=== PATIENT | female | born 1960 | race Caucasian/White ===

== ENCOUNTER 2020-04-03 08:28 | Outpatient (REF) | payer BC, SELFPAY ==
--- NOTE | 2020-04-03 08:36 | MM_ITS ---
EXAMINATION: MM SCREENING DIGITAL BREAST TOMOSYNTHESIS, BILATERAL CLINICAL INFORMATION: Screening. Asymptomatic. The lifetime risk of breast cancer based on the Tyrer-Cuzick Model is 5.1%. COMPARISON: Mammography: January 23, 2019 and studies dating back to January 10, 2008 TECHNIQUE: Digital breast tomosynthesis is performed in both the craniocaudal and mediolateral oblique views along with computer-aided detection (CAD). Synthesized 2D images are generated from the tomosynthesis. FINDINGS: The breasts are heterogeneously dense, which may obscure small masses (ACR BI-RADS breast composition Category c). There is a stable parenchymal pattern within the left breast however there is a region of architectural distortion about the upper outer aspect of the right breast which may have some more soft tissue component on the mediolateral oblique projection for which spot compression view is. There is no history of previous right breast procedure. MM/MM tomosynthesis screening BI IMPRESSION: Questionable increase in parenchymal density in region of architectural distortion upper outer aspect of the right breast for further evaluation as described. ASSESSMENT: BI-RADS 0: Incomplete - Need Additional Imaging Evaluation RECOMMENDATION: 1. Additional views of the right 2. Targeted ultrasound if warranted after review of the additional views. 3. Radiology department staff will contact the patient for additional imaging. This patient's information was entered into a reminder system with a target due date for their next mammogram.
== END 2020-04-03 08:29 | disposition home or self-care (01) ==
LOC: HO.MAMMO 08:28
PROVIDERS: PCP Family Medicine; Visit Provider Student in an Organized Health Care Education/Training Program
DX: Z12.31 Encounter for screening mammogram for malignant neoplasm of breast (principal)
CPT/HCPCS: 77063; 77067

== ENCOUNTER 2020-04-06 14:33 | Outpatient (REF) | payer BC, SELFPAY ==
--- NOTE | 2020-04-06 14:39 | MM_ITS ---
EXAMINATION: MM DIAGNOSTIC DIGITAL BREAST TOMOSYNTHESIS, RIGHT BREAST TARGETED RIGHT BREAST ULTRASOUND CLINICAL INFORMATION: Region of architectural distortion upper outer aspect right breast. COMPARISON: Mammography: 04/03/2020 and studies dating back to 08/17/2005. TECHNIQUE: Digital breast tomosynthesis is performed. 2D images are generated from the tomosynthesis. The following views are obtained: Spot compression craniocaudal, spot compression mediolateral oblique, and 90 degree mediolateral views right breast. FINDINGS: The breasts are heterogeneously dense, which may obscure small masses (ACR BI-RADS breast composition Category c). Additional imaging again shows a questionable region of architectural distortion about the upper outer aspect of the right breast which had been worked up in 2007. There is a similar appearance but I would still recommend a 6-month follow-up right breast mammogram to ensure stability. Targeted right breast ultrasound was then performed. Scanning by the technologist and myself did not demonstrate any abnormal cystic or solid mass. No region of architectural distortion or abnormal distal sound shadowing was identified. Results are discussed with the patient at time of visit. MM/MM tomosynthesis added views R IMPRESSION: Probably benign region of architectural distortion upper outer aspect of the right breast as described. ASSESSMENT: BI-RADS 3: Probably Benign. RECOMMENDATION: Diagnostic mammography in 6 months. This patient's information was entered into a reminder system with a target due date for their next mammogram.
--- NOTE | 2020-04-06 14:41 | US_ITS ---
EXAMINATION: US DIAGNOSTIC ULTRASOUND BREAST, RIGHT CLINICAL INFORMATION: The upper outer quadrant architectural distortion. COMPARISON: Mammography of same day as well as studies dating back to November 17, 2006. TECHNIQUE: Ultrasound of the breast is performed with real-time gooden scale imaging and color Doppler. FINDINGS: Targeted right breast ultrasound was performed. Scanning by the technologist and myself did not demonstrate any abnormal cystic or solid mass. No region of architectural distortion or abnormal distal sound shadowing was identified. Results are discussed with the patient at time of visit. US/US breast RT limited IMPRESSION: Probably benign region of architectural distortion upper outer aspect of the right breast as described. ASSESSMENT: BI-RADS 3: Probably Benign. RECOMMENDATION: Diagnostic mammography in 6 months.
== END 2020-04-06 14:34 | disposition home or self-care (01) ==
LOC: HO.MAMMO 14:33
PROVIDERS: Visit Provider Family Medicine
DX: N64.89 Other specified disorders of breast (principal)
CPT/HCPCS: 76642; 77061; 77065

== ENCOUNTER 2020-06-10 14:52 | Outpatient (REF) | payer BC, SELFPAY ==
[2020-06-10 15:27] LABS: MANUAL DIFF FLAG NO
[2020-06-10 15:29] LABS: Glucose Urine UA NEG (NEG); Leukocyte Esterase Urine NEG (NEG); Nitrite Urine NEG (NEG); PH 6.5 (5.0-8.0); Specific Gravity - Urine 1.015 (1.005-1.025); Urine Blood NEG (NEG); Urine Ketones NEG (NEG); Urine Protein NEG (NEG-TRACE)
[2020-06-10 15:31] LABS: Basophils Percent Auto 0.6 % (0-2); Eosinophils Absolute Auto 0.1 X10*3/uL (0.0-0.4); Eosinophils Percent Auto 2.1 % (0-4); Hematocrit 44.4 % (37-47); Hemoglobin 14.9 g/dl (12.0-16.0); Imm Gran Abs Auto 0.02 X10*3/uL (0.00-0.03); Imm Gran Pct Auto 0.3 % (0.0-0.4); Lymphocytes Absolute Auto 2.1 X10*3/uL (1.2-4.9); Lymphocytes Percent Auto 30.1 % (20-40); Mean Corpuscular HGB Conc 33.6 g/dl (31.0-35.0); Mean Corpuscular Volume 92.3 fL (80-98); Mean Platelet Volume 10.6 fL (9.4-12.3); Monocytes Absolute Auto 0.7 X10*3/uL (0.1-1.2); Monocytes Percent Auto 10.3 % (2-11); Neutrophils Absolute Auto 3.9 X10*3/uL (2.0-8.3); Neutrophils Percent Auto 56.6 % (45-73); Platelet Count 243 X10*3/uL (160-400); Red Blood Count 4.81 X10*6/uL (4.20-5.50); Red Cell Distribution Width 12.5 % (11.0-16.0); White Blood Count 6.8 X10*3/uL (4.8-10.8)
[2020-06-10 15:32] LABS: Appearance Urine CLEAR; Color Urine YELLOW
== END 2020-06-10 14:53 | disposition home or self-care (01) ==
LOC: HO.LAB 14:52
PROVIDERS: PCP Family Medicine; Visit Provider Family Medicine
DX: R10.9 Unspecified abdominal pain (principal); R11.2 Nausea with vomiting, unspecified
CPT/HCPCS: 36415; 81003; 85025

== ENCOUNTER 2020-06-11 10:31 | Outpatient (REF) | payer BC, SELFPAY ==
--- NOTE | ~2020-06-11 | US_ITS ---
EXAMINATION:US pelvic and transvaginal CLINICAL INFORMATION: Reason for Exam PELVIC PAIN COMPARISON: No priors available. LMP: Postmenopausal FINDINGS: UTERUS: The uterus is anteverted. Size: 5.9 x 2.9 x 3.7 cm. Uterine mass: Intramural uterine mass in the posterior wall of the uterus measure 1.7 x 1.4 x 1.8 cm likely uterine fibroid. Cervix: Grossly unremarkable. Endometrium: No ultrasound evidence of endometrial lesion. endometrial thickness measures 0.35 cm ADNEXA: Ovaries were not visualized might have been obscured by bowel gas. FREE FLUID: Trace amount of free fluid. OTHER FINDINGS: None US/US pelvic and transvaginal IMPRESSION: 1. Intramural uterine mass 1.8 cm most likely uterine fibroid. 2. Ovaries were not visualized right have been atrophic and/or obscured by bowel gas.
--- NOTE | ~2020-06-11 | US_ITS ---
EXAMINATION: US RETROPERITONEAL LIMITED (RENAL ONLY) CLINICAL INFORMATION: Right lower quadrant pain. COMPARISON: None TECHNIQUE: Real-time imaging of the kidneys. FINDINGS: RIGHT KIDNEY: 9.8 x 4.6 x 5.56 cm (SAG x AP x TRV). The kidney is normal in size, contour, and echogenicity. Renal cortical thickness is normal. No renal calculi or focal parenchymal lesions. Mild fullness of the collecting system. LEFT KIDNEY: 10.7 x 4.6 x 4.4 cm (SAG x AP x TRV). The kidney is normal in size, contour, and echogenicity. Renal cortical thickness is normal. No focal parenchymal lesions or hydronephrosis. Mid pole 0.5 cm calculus. Midpole 0.3 cm calculus. Incidental note of a hyperechoic lesion in the right lobe of the liver measuring 3.8 cm. This could represent a hemangioma. US/US renal BI IMPRESSION: Mild fullness of the right collecting system, though no significant hydronephrosis. No right-sided renal calculi are seen. 2 nonobstructing left renal calculi are noted. Incidental note of a hyperechoic lesion in the right lobe of the liver. This may represent a hemangioma. If clinically indicated this could be further evaluated with nonemergent dynamic liver MRI..
== END 2020-06-11 10:32 | disposition home or self-care (01) ==
LOC: HO.HMGCX 10:31
PROVIDERS: PCP Family Medicine; Visit Provider Family Medicine
DX: R10.31 Right lower quadrant pain (principal); R10.9 Unspecified abdominal pain
CPT/HCPCS: 76775; 76830; 76856

== ENCOUNTER → 2020-07-20 07:53 | Outpatient (BNVA) | payer BC, SELFPAY | PROVIDERS: PCP Family Medicine; Visit Provider Advanced Practice Midwife ==

== ENCOUNTER 2020-10-06 12:57 | Outpatient (REF) | payer BC, SELFPAY ==
--- NOTE | ~2020-10-06 | MM_ITS ---
EXAMINATION: MM DIAGNOSTIC DIGITAL BREAST TOMOSYNTHESIS, RIGHT CLINICAL INFORMATION: Short interval six-month follow-up chronic findings right breast upper outer quadrant. The lifetime risk of breast cancer based on the Tyrer-Cuzick Model is 7%. COMPARISON: Mammography: 04/06/2020, 04/03/2020 and multiple prior studies dating back to 11/17/2006. TECHNIQUE: Digital breast tomosynthesis is performed in both the craniocaudal and mediolateral oblique views along with computer-aided detection (CAD). Synthesized 2D images are generated from the tomosynthesis. FINDINGS: There are scattered areas of fibroglandular density (ACR BI-RADS breast composition Category b). Right breast parenchymal pattern is similar to multiple prior studies. There is no developing density or interval mass or interval architectural changes in the upper outer quadrant. No abnormal calcifications. The axilla and skin contours are unremarkable. Results are provided to the patient at time of visit by the technologist. MM/MM tomosynthesis diagnostic RT IMPRESSION: No significant changes in right breast parenchymal pattern when compared with multiple prior exams. ASSESSMENT: BI-RADS 2: Benign RECOMMENDATION: Routine annual mammography screening. This patient's information was entered into a reminder system with a target due date for their next mammogram.
== END 2020-10-06 12:58 | disposition home or self-care (01) ==
LOC: HO.MAMMO 12:57
PROVIDERS: Visit Provider Family Medicine
DX: R92.2 Inconclusive mammogram (principal)
CPT/HCPCS: 77061; 77065

== ENCOUNTER 2021-04-09 07:57 | Outpatient (REF) | payer BC, SELFPAY ==
--- NOTE | ~2021-04-09 | MM_ITS ---
EXAMINATION: MM SCREENING DIGITAL BREAST TOMOSYNTHESIS, BILATERAL CLINICAL INFORMATION: Screening. Asymptomatic. The lifetime risk of breast cancer based on the Tyrer-Cuzick Model is 6%. COMPARISON: Mammography: 10/06/2020, 04/06/2020, 04/03/2020, 01/23/2019, 01/16/2018, 09/29/2016, 09/10/2015 TECHNIQUE: Digital breast tomosynthesis is performed in both the craniocaudal and mediolateral oblique views along with computer-aided detection (CAD). Synthesized 2D images are generated from the tomosynthesis. FINDINGS: There are scattered areas of fibroglandular density (ACR BI-RADS breast composition Category b). Parenchymal pattern is similar to prior studies. There is no developing density or interval architectural abnormality. A few fine calcifications anterior outer right breast are stable. There are no interval suspicious calcifications. The axilla and skin contours are unremarkable. There are no significant changes from prior studies. MM/MM tomosynthesis screening BI IMPRESSION: No mammographic evidence of malignancy. ASSESSMENT: BI-RADS 2: Benign RECOMMENDATION: Routine annual mammography screening. This patient's information was entered into a reminder system with a target due date for their next mammogram.
== END 2021-04-09 07:58 | disposition home or self-care (01) ==
LOC: HO.MAMMO 07:57
PROVIDERS: Visit Provider Family Medicine
DX: Z12.31 Encounter for screening mammogram for malignant neoplasm of breast (principal)
CPT/HCPCS: 77063; 77067

== ENCOUNTER → 2021-07-22 08:00 | Outpatient (BNVA) | payer BC, SELFPAY | PROVIDERS: PCP Family Medicine; Visit Provider Advanced Practice Midwife | DX: Z01.419 Encounter for gynecological examination (general) (routine) without abnormal findings (principal) ==

== ENCOUNTER 2022-04-15 07:46 | Outpatient (REF) | payer BC, SELFPAY ==
--- NOTE | ~2022-04-15 | MM_ITS ---
EXAMINATION: MM SCREENING DIGITAL BREAST TOMOSYNTHESIS, BILATERAL CLINICAL INFORMATION: Screening. Asymptomatic. The lifetime risk of breast cancer based on the Tyrer-Cuzick Model is 7%. COMPARISON: Mammography: 04/09/2021, 10/06/2020, 04/06/2020, 04/03/2020, 01/23/2019 TECHNIQUE: Digital breast tomosynthesis is performed in both the craniocaudal and mediolateral oblique views along with computer-aided detection (CAD). Synthesized 2D images are generated from the tomosynthesis. FINDINGS: There are scattered areas of fibroglandular density (ACR BI-RADS breast composition Category b). There are no significant masses, abnormal calcifications, or other abnormalities. Parenchymal pattern is similar to prior exams and there is no developing density or architectural abnormality. The axilla are unremarkable. Skin contours are smooth. MM/MM tomosynthesis screening BI IMPRESSION: No mammographic evidence of malignancy. ASSESSMENT: BI-RADS 1: Negative RECOMMENDATION: Routine annual mammography screening. This patient's information was entered into a reminder system with a target due date for their next mammogram.
== END 2022-04-15 07:47 | disposition home or self-care (01) ==
LOC: HO.MAMMO 07:46
PROVIDERS: PCP Family Medicine; Visit Provider Family Medicine
DX: Z12.31 Encounter for screening mammogram for malignant neoplasm of breast (principal)
CPT/HCPCS: 77063; 77067

== ENCOUNTER 2022-05-10 08:00 | Outpatient (REF) | payer BC, SELFPAY ==
[2022-05-10 09:08] LABS: Alanine Aminotransferase 15 U/L (0-31); Albumin Level 4.2 g/dL (3.5-5.0); Alkaline Phosphatase 79 U/L (39-117); Anion Gap 15 (12-20); Aspartate Amino Transferase 20 U/L (5-31); Blood Urea Nitrogen 21 mg/dL (9-16); Calcium 9.2 mg/dL (8.4-10.2); Carbon Dioxide 24 mmol/L (22-29); Chloride 104 mmol/L (96-108); Estimated Glomerular Filt Rate > 60; Glucose Random 103 mg/dL (60-115); Potassium 4.2 mmol/L (3.3-5.1); Sodium 139 mmol/L (135-145)
== END 2022-05-10 08:01 | disposition home or self-care (01) ==
LOC: HO.LAB 08:00
PROVIDERS: PCP Family Medicine; Visit Provider Family Medicine
DX: R00.2 Palpitations (principal); R53.83 Other fatigue
CPT/HCPCS: 36415; 80053

== ENCOUNTER → 2022-07-27 07:59 | Outpatient (BNVA) | payer BC, SELFPAY | PROVIDERS: PCP Family Medicine; Visit Provider Advanced Practice Midwife ==

== ENCOUNTER 2023-04-26 07:43 | Outpatient (REF) | payer BC, SELFPAY ==
--- NOTE | ~2023-04-26 | MM_ITS ---
EXAMINATION: MM SCREENING DIGITAL BREAST TOMOSYNTHESIS, BILATERAL CLINICAL INFORMATION: Screening. Asymptomatic. COMPARISON: Mammography: This study is compared with prior exams dating back to 2018. TECHNIQUE: Digital breast tomosynthesis is performed in both the craniocaudal and mediolateral oblique views along with computer-aided detection (CAD). Synthesized 2D images are generated from the tomosynthesis. FINDINGS: There are scattered areas of fibroglandular density (ACR BI-RADS breast composition Category b). There is a large area of focal asymmetry in the upper outer quadrant of the right breast. This is been previously evaluated and followed with mammography. On the current study, the area of focal asymmetry appears larger and more distinct. Additional mammographic and targeted sonographic evaluation of this finding is advised. Rolled cc views of the right breast included in the diagnostic workup. There is a coarse, benign calcification in the medial aspect of the right breast. In the left breast, there are no significant masses, abnormal calcifications, or other abnormalities. MM/MM tomosynthesis screening BI IMPRESSION: Focal asymmetry of the right breast warrants additional mammographic and targeted sonographic imaging. No mammographic signs of malignancy left breast. ASSESSMENT: BI-RADS BI-RADS 0 - Incomplete: Needs additional Imaging. RECOMMENDATION: 1. Additional views of the right breast. 2. Targeted ultrasound if warranted after review of the additional views. 3. Radiology department staff will contact the patient for additional imaging. Additional Imaging required This examination should not preclude the clinical evaluation of a suspicious palpable abnormality. This patient's information was entered into a reminder system with a target due date for their next mammogram.
== END 2023-04-26 07:44 | disposition home or self-care (01) ==
LOC: HO.MAMMO 07:43
PROVIDERS: PCP Family Medicine; Visit Provider Family Medicine
DX: Z12.31 Encounter for screening mammogram for malignant neoplasm of breast (principal)
CPT/HCPCS: 77063; 77067

== ENCOUNTER → 2023-04-26 08:00 | Outpatient (BNV) | payer BC, SELFPAY | PROVIDERS: PCP Family Medicine; Visit Provider Radiology Diagnostic Radiology | DX: Z12.31 Encounter for screening mammogram for malignant neoplasm of breast (principal) | CPT/HCPCS: 77063; 77067 ==

== ENCOUNTER 2023-05-22 08:50 | Outpatient (REF) | payer BC, SELFPAY ==
--- NOTE | ~2023-05-22 | US_ITS ---
EXAMINATION: MM DIAGNOSTIC DIGITAL BREAST TOMOSYNTHESIS, RIGHT US BREAST LIMITED, RIGHT MAMMOGRAPHY: CLINICAL INFORMATION: Callback for focal asymmetry upper outer quadrant right breast. COMPARISON: Mammography: 04/26/2023, 04/09/2021, 10/06/2020, 04/06/2020, 04/03/2020, 01/23/2019 TECHNIQUE: Digital right breast tomosynthesis is performed including full-field right mediolateral view was obtained, as well as spot compression 3-D right MLO and right CC views along with computer-aided detection (CAD). Synthesized 2D images are generated from the tomosynthesis FINDINGS: There are scattered areas of fibroglandular density (ACR BI-RADS breast composition Category b). On the diagnostic spot compression views, and full-field right ML view, the focal asymmetry appears to largely dissipate without persistent mass or suspicious feature. This most likely represents a prominent island of normal breast parenchyma. No suspicious calcifications are evident. No skin thickening or axillary abnormalities. ULTRASOUND: CLINICAL INFORMATION: Evaluate focal asymmetry upper outer quadrant right breast. COMPARISON: 04/06/2020. Same indication. TECHNIQUE: Targeted sonographic evaluation was performed using a high frequency linear transducer. The right upper quadrant was targeted for evaluation. Selected archived documentation. FINDINGS: RIGHT BREAST: There is a mixture of fatty and fibroglandular tissue. No suspicious mass is seen. There is no pathologic acoustic shadowing. There is no cystic abnormality. There is no ultrasound correlate to the mammographic focal asymmetry. US/US breast RT limited mamm only IMPRESSION: There are no findings suspicious for malignancy within the right breast. Focal asymmetry upper outer quadrant right breast does not appear to persist on diagnostic views, and has no ultrasound correlate. This has been investigated previously and represents an island of mildly prominent normal breast parenchyma. Recommend the patient return to routine annual screening mammography in one year. OVERALL ASSESSMENT: Mammography: BI-RADS 1 - Negative Ultrasound: BI-RADS 1 - Negative RECOMMENDATION: 1 year F/U Results were provided to the patient at time of visit by the technologist. This patient's information was entered into a reminder system with a target due date for their next mammogram.
== END 2023-05-22 08:51 | disposition home or self-care (01) ==
LOC: HO.MAMMO 08:50
PROVIDERS: PCP Family Medicine; Visit Provider Family Medicine
DX: N64.89 Other specified disorders of breast (principal)
CPT/HCPCS: 76642; 77061; 77065

== ENCOUNTER → 2023-05-22 09:00 | Outpatient (BNV) | payer BC, SELFPAY | PROVIDERS: PCP Family Medicine; Visit Provider Radiology Diagnostic Radiology | DX: R92.8 Other abnormal and inconclusive findings on diagnostic imaging of breast (principal) | CPT/HCPCS: 76642; 77061; 77065 ==

== ENCOUNTER 2023-12-19 07:42 | Outpatient (AMB) | payer BC, SELFPAY ==
--- NOTE | 2023-12-19 07:44 | A.OFFVIS_ITS ---
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 She is doing well with no concerns. Attempting to eat a healthy diet with calcium and vitamin D and stays active with exercise. Currently sexually active. Denies any vaginal dryness or irritation. Last pap smear; 2018. Last mammogram; 2023. Colonoscopy is UTD. Denies any family history of breast, ovarian or colon cancer. 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 Sexually active: Yes Sexual orientation: Straight/Heterosexual Gender identity: Female Female Reproductive History Menstrual Menopause type: natural Total pregnancies: 1 Full term: 1 Number of Living Children: 1 Date of Mammogram: 04/26/23 Review of Systems Const All systems reviewed & are unremarkable except as noted in HPI and below Reports as per HPI Eyes Reports no additional complaints ENT Reports no additional complaints Card Reports no additional complaints Resp Reports no additional complaints GI Reports as per HPI and Reports no additional complaints Reports as per HPI Musc Reports no additional complaints Skin/Breast Reports as per HPI Neuro Reports no additional complaints Psych Reports no additional complaints Endo Reports no additional complaints Abraham/Lymph Reports no additional complaints Aller/Immun Reports no additional complaints Physical Exam Vital Signs: Last Vital Signs BP 126/72 12/19/23 07:46 BMI result Body Mass Index 28.5 Const General: cooperative, healthy appearing, no acute distress, well developed and alert Orientation/consciousness: patient oriented x3 HEENT Head: Yes normal to inspection Eyes General: appearance normal, both eyes and all related structures Neck Neck: Yes normal visual inspection Thyroid: Thyroid normal Chest Chest palpation & inspection: normal inspection of the chest and other (no puckering, dimpling, peau de orange, retraction, discharge, masses) Breast/axilla inspection: normal inspection of the breasts Breast/axilla palpation: normal palpation of the breasts Resp Effort & Inspection: normal respiratory effort GI Inspection: Yes normal to inspection Palpation (GI): Soft to palpation Rectal Exam - Female: deferred General: Yes bladder normal to palpation External Female Exam: normal external appearance and normal appearance of the urethra Speculum Exam - Vagina: normal appearance of the vagina, normal palpation, normal vaginal discharge and vagina atrophic Speculum Exam - Cervix: normal appearance of the cervix, normal palpation and Other cervical findings present (Stenotic os) Bimanual exam- vagina & uterus: normal bimanual exam, normal palpation, uterine size normal, bladder normal to palpation, normal palpation and non-tender Bimanual Exam- Adnexa, other: no masses Skin General skin exam: no rashes or lesions noted Rashes: no rashes Neuro General: patient oriented x3 Cognition (Neuro): normal cognition Extrem General: Yes normal to inspection Psych Attitude: cooperative Thought process: Normal thought process present Assessment & Plan Assessment & Plan (1) Encounter for annual routine gynecological examination: Code(s): Z01.419 - Encounter for gynecological examination (general) (routine) without abnormal findings Category: Medical Plan Discussed: Current recommendations for pap smears per ASCCP guidelines. Breast awareness, periodic self breast exams and yearly mammogram. Maintain a healthy lifestyle, well balanced diet including Calcium 1,200 mg and Vitamin D 600 IU daily, and routine exercise. Contact the office with any postmenopausal bleeding. Patient verbalizes understanding and agrees to the plan of care. She was given opportunity to ask questions and all questions were answered to the best of my ability. RTO in 1 year for annual ob gyn physician assistant exam. This note is constructed using voice recognition software. While every effort has been made to ensure accuracy, boating safety officer errors may have been included. Orders: Orders PAP + HPV E6/E7 rfx 18/45 Today Z01.419 - Encounter for gynecological examination (general) (routine) without abnormal findings Coding Level of Care Code Est Pt Prev Care 40-64y(21162) Diagnoses Encounter for annual routine gynecological examination Z01.419
[2023-12-19 07:46] VITALS: BP 126/72; BMI 28.5
== END 2023-12-19 08:19 | disposition home or self-care (01) ==
LOC: HO.HWS 07:42
PROVIDERS: PCP Family Medicine; Visit Provider Advanced Practice Midwife
DX: Z01.419 Encounter for gynecological examination (general) (routine) without abnormal findings (principal)
CPT/HCPCS: 99396

== ENCOUNTER 2023-12-19 07:42 | Outpatient (REF) | payer BC, SELFPAY ==
[2023-12-21 15:03] LABS: HPV mRNA E6/E7 Not Detected (Not Detected)
== END 2023-12-19 07:43 | disposition home or self-care (01) ==
LOC: HO.LNP 07:42
PROVIDERS: PCP Family Medicine; Visit Provider Advanced Practice Midwife
DX: Z01.419 Encounter for gynecological examination (general) (routine) without abnormal findings (principal)
CPT/HCPCS: 87624; 88175

== ENCOUNTER 2024-05-01 07:54 | Outpatient (REF) | payer BC, SELFPAY | END 2024-05-01 07:55 | disposition home or self-care (01) | LOC: HO.MAMMO 07:54 | PROVIDERS: PCP Family Medicine; Visit Provider Family Medicine | DX: Z12.31 Encounter for screening mammogram for malignant neoplasm of breast (principal) | CPT/HCPCS: 77063; 77067 ==

== ENCOUNTER → 2024-05-01 08:00 | Outpatient (BNV) | payer BC, SELFPAY | PROVIDERS: PCP Family Medicine; Visit Provider Internal Medicine | DX: Z12.31 Encounter for screening mammogram for malignant neoplasm of breast (principal) | CPT/HCPCS: 77063; 77067 ==

== ENCOUNTER 2024-11-13 07:53 | Outpatient (AMB) | payer BC, SELFPAY ==
--- NOTE | 2024-11-13 07:55 | A.OFFPC_ITS ---
Vital Signs 11/13/24 08:09 Height 5 ft 2 in Weight 156 lb BMI 28.5 BP 148/62 H Blood Pressure Location Rt brachial Position Sitting Respiration 17 Pulse 79 Pulse Source Pulse Oximeter Temp 98 F Pulse Oximetry (%) 96 Oxygen Delivery Method Room Air Intake Visit Reasons: 6 MO F/UP - LACKEY PT - see comments Child Custody Evaluator Required: No Accompanied by: Spouse Allergies clarithromycin (Biaxin) Allergy (Unknown, Verified 11/13/24 07:55) anxious Tobacco use date assessed: 11/13/24 Fall risk assessment: No Falls in past year Last assessed Fall Risk: 11/13/24 Dental Screening Did you have a dental visit in the last 12 months?: Yes HPI HPI Comments History of Present Illness Details The patient is a 64-year-old female presenting with hypertension and anxiety. She reports a history of high blood pressure readings, particularly in clinical settings, which she attributes to white coat hypertension. 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 The patient reports that she is currently on metoprolol, which was initially prescribed not solely for hypertension but also to manage symptoms related to tachycardia and anxiety. She describes herself as high-strung, reflective of her anxious personality, which she believes contributes to elevated heart rates and fluttery sensations. The patient has been resistant to medication use due to personal preference, taking several years before agreeing to start metoprolol. She also mentions historical smoking cessation 42 years ago and no use of alcohol or recreational drugs. Regular monitoring of blood pressure at home has not been done, as she monitors it while at work. 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 - Engages actively, often on her feet wi thout sitting - Does not consume alcohol or engage in recreational drug use - Smoker in the past but quit 42 years a go - Expresses anxiety about global and fam ilial concerns, prefers non-medication management [facility] Medical History (Updated 11/13/24 @ 08:41 by Arpit Johnson MD) Healthcare maintenance Anxiety Hypertension Family History (Updated 12/19/23 @ 07:48 by Candy Steel CMA) Father Diabetes Cardiomegaly Hypertension Mother Uterus cancer Social History (Updated 12/19/23 @ 07:49 by Candy Steel CMA) Household Members: Spouse Housing: House Alcohol intake: never Patient Tobacco Use Status: Former Tobacco user e-Cigarette/Vaping Use: Never Used service: No Current occupational status: employed Current occupation: retirement Sexual orientation: Straight/Heterosexual Gender identity: Female Questionnaire PHQ-9 Over the last 2 weeks, how often have you been bothered by any of the following problems? 1. Little interest or pleasure in doing things: not at all 2. Feeling down, depressed, or hopeless: not at all 3. Trouble falling or staying asleep, or sleeping too much: not at all 4. Feeling tired or having little energy: not at all 5. Poor appetite or overeating: not at all 6. Feeling bad about yourself - or that you are a failure or have let yourself or your family down: not at all 7. Trouble concentrating on things, such as reading the newspaper or watching television: not at all 8. Moving or speaking so slowly that other people could have noticed. Or the opposite - being so fidgety or restless that you have been moving around a lot more than usual: not at all 9. Thoughts that you would be better off or of hurting yourself in some way: not at all Total score: 0 Depression Screening Interpretation: Negative Depression Screening Done: Yes 72325 - PHQ-9 Billing: Yes Source: Developed by Drs. Govind Mcgraw, Gertrude Mccann, Dany Blackwood and colleagues, with an educational ananth from [employer]. Thrive Questionnaire Date Thrive assessed: 11/13/24 I am a: Patient What is your living situation today?: I have a steady place to live Within the past 12 months, did the food you bought not last and you didn't have the money to get more?: Never true Within the past 12 months, did you worry whether your food would run out before you got money to buy more?: Never true Do you have trouble paying for medicines?: No Do you have trouble getting transportation to medical appointments?: No Do you have trouble paying your heating and electricity bill?: No Do you have trouble taking care of your child, family member or friend?: No Do you have trouble with day-to-day activities such as bathing, preparing meals, shopping, managing finances, etc.?: No Are you currently unemployed and looking for a job?: No Are you interested in more education?: No THRIVE Score: 0 AUDIT C Alcohol Use Questionnaire (AUDIT-C) 1. How often do you have a drink containing alcohol?: Never 3. How often do you have six or more drinks on one occasion?: Never Total Score: 0 Score Reviewed/Action Taken: Yes ROB-7 AMB Questionnaire ROB-7 Date ROB - 7 assessed: 11/13/24 Feeling nervous, anxious, or on edge: 1 = Several days Not being able to stop or control worryin = Several days Worrying too much about different things: 0 = Not at all Trouble relaxin = Not at all Being so restless that it is hard to sit still: 0 = Not at all Becoming easily annoyed or irritable: 0 = Not at all Feeling afraid as if something awful might happen: 0 = Not at all Total ROB-7 score (0-4 normal; 5-9 mild; 10-14 moderate; 15-21 severe): 2 Source: Developed by Drs. Govind Mcgraw, Gertrude Mccann, Dany Blackwood and colleagues, with an educational ananth from [employer]. ROB-7 Assessment Billing ROB-7 Assessment Tool: ROB-7 Assessment 87956 Review of Systems Const Details: - Cardiovascular: Reports tachycardia and fluttering sensations; denies chest pain - Neurological: Denies headaches or changes in vision - Genitourinary: Denies urinary or bowel issues - Musculoskeletal: Denies joint pain; acknowledges use of compression stockings for leg symptoms - Psychological: Reports anxiety related to caretaking and personal concerns All systems reviewed & are unremarkable except as noted in HPI and below Physical exam (Primary Care) Vital Signs: Last Vital Signs Temp 98 F 11/13/24 08:09 Pulse 79 11/13/24 08:09 Resp 17 11/13/24 08:09 BP 148/62 H 11/13/24 08:09 Pulse Ox 96 11/13/24 08:09 Oxygen Delivery Method Room Air 11/13/24 08:09 BMI result Body Mass Index 28.5 Tobacco/Smoking Status: Tobacco use Status Tobacco use date assessed 11/13/24 11/13/24 07:56 Patient Tobacco Use Status Former Tobacco user 11/13/24 07:56 e-Cigarette/Vaping Use Never Used 11/13/24 08:12 Depression Screening Interpretation: Negative Const Other: General: +Alert and oriented, Well nourished, No acute distress. Eye: Pupils are equal, round and reactive to light, Intact accommodation, Extraocular movements are intact, Normal conjunctiva, Vision unchanged. HENT: Normocephalic, Atraumatic, Tympanic membranes are clear, Normal hearing, Oral mucosa is moist, No pharyngeal erythema, Ear canals patent. Respiratory: Lungs CTA bilaterally, No wheeze, Respirations are non-labored. Cardiovascular: Regular rate, Regular rhythm, S1 auscultated, S2 auscultated, No murmur, Good pulses equal in all extremities, Normal peripheral perfusion, No edema. Gastrointestinal: Soft, Non-tender, Non-distended, Normal bowel sounds, No organomegaly. Musculoskeletal: Normal range of motion, Normal strength, No tenderness, No swelling, No deformity, Normal gait. Integumentary: Warm, Dry, [place], Intact. Neurologic: Alert, Oriented, Normal sensory, Normal motor function, No focal defects, Cranial Nerves II-XII are grossly intact, Normal deep tendon reflexes. Psychiatric: Cooperative, Appropriate mood & affect, Anxious, Normal judgment. Coding Level of Care Code New Pt Level 4 (88792) Diagnoses Hypertension, unspecified type I10 Hypertension type: unspecified Anxiety F41.9 Healthcare maintenance Z00.00 Additional Codes PHQ-9 - 56581 - PHQ-9 Billing: Yes ([id number]) ROB-7 Assessment Billing - ROB-7 Assessment Tool: ROB-7 Assessment [id number] ([id number]) Assessment & Plan Assessment & Plan (1) Hypertension: Comment: - Continue monitoring blood pressure regularly at home and fci settings. - Discuss the objective findings of blood pressure readings (based on home record) before making changes to current medication regimen. - Continue metoprolol Code(s): I10 - Essential (primary) hypertension Category: Medical Qualifiers: Hypertension type: unspecified Qualified Code(s): I10 - Essential (primary) hypertension (2) Anxiety: Comment: - Patient expresses a preference for minimal medication use. - Continue metoprolol for its anxiolytic and heart rate regulation effects, given patient comfort with current regimen. Code(s): F41.9 - Anxiety disorder, unspecified Category: Medical (3) Healthcare maintenance: Comment: - Monitoring of upcoming Pap smear results and continued use of Cologuard for colorectal screening. - Consider additional blood pressure management strategies if home readings indicate persistent hypertension. Code(s): Z00.00 - Encounter for general adult medical examination without abnormal findings Category: Medical Plan During the visit, we discussed the management of hypertension, emphasizing the potential variability due to white coat hypertension. I highlighted the importance of regular monitoring at home, especially due to different readings observed in clinical settings. We agreed on continued use of metoprolol, which offers dual benefit for her anxiety-related symptoms and mild persistent tachycardia. I advised on the forthcoming Pap smear and Cologuard repeat abbe hines, stressing their roles in preventative health. She was encouraged to note blood pressure readings from her work and home environments to provide better insight into her ongoing management strategy. Orders: Orders Comprehensive Met. Panel Today I10 - Essential (primary) hypertension Lipid Panel Today I10 - Essential (primary) hypertension TSH reflex Free T4 Today I10 - Essential (primary) hypertension Vitamin D 25-OH Total Today I10 - Essential (primary) hypertension Complete Blood Count Auto Diff Today I10 - Essential (primary) hypertension Hemoglobin A1c Today I10 - Essential (primary) hypertension Referrals Cologuard Test Z12.11 - Encounter for screening for malignant neoplasm of col on, Z12.12 - Encounter for screening for malignant neoplasm of rectum Patient Instructions: - Continue taking metoprolol as prescribed. - Monitor your blood pressure at home and at work; bring documented readings to your next appointment. - Use compression stockings as advised to support your musculoskeletal health. - Keep your scheduled PERIOPERATIVE TECH appointment and follow up with any results. - Maintain your Cologuard screenings and report any unusual results. - Contact the clinic with any new or worsening symptoms, especially regarding your blood pressure or anxiety.
[2024-11-13 08:09] VITALS: BP 148/62; PULSE 79; RESP 17; TEMP 36.6; O2SAT 96; BMI 28.5
== END 2024-11-13 08:40 | disposition home or self-care (01) ==
LOC: HO.HMCHD 07:53
PROVIDERS: PCP Student in an Organized Health Care Education/Training Program; Visit Provider Student in an Organized Health Care Education/Training Program
DX: I10 Essential (primary) hypertension (principal); F41.9 Anxiety disorder, unspecified; Z00.00 Encounter for general adult medical examination without abnormal findings

== ENCOUNTER → 2024-11-13 07:53 | Outpatient (BNVA) | payer BC, SELFPAY | PROVIDERS: PCP Family Medicine; Visit Provider Student in an Organized Health Care Education/Training Program | DX: Z00.00 Encounter for general adult medical examination without abnormal findings (principal); I10 Essential (primary) hypertension; F41.9 Anxiety disorder, unspecified; Z79.899 Other long term (current) drug therapy; Z13.31 Encounter for screening for depression; Z13.39 Encounter for screening examination for other mental health and behavioral disorders | CPT/HCPCS: 96127 ==

== ENCOUNTER 2024-12-25 07:39 | Outpatient (AMB) | payer BC, SELFPAY ==
--- NOTE | 2024-12-25 07:43 | A.OFFVIS_ITS ---
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 Quantitative Strategy Analyst concerns: none. Currently not sexually active. Denies any vaginal dryness or irritation. STI testing offered; she declines. Attempting to eat a healthy diet with calcium and vitamin D and stays active with exercise. Last pap smear; 2023, negative. Last mammogram; 2024. ColoGard is UTD. Denies any family history of breast, ovarian or colon cancer. 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 Sexual orientation: Straight/Heterosexual Gender identity: Female Female Reproductive History Menstrual Total pregnancies: 1 Full term: 1 Number of Living Children: 1 Date of last pap smear: 12/19/23 (neg pap and hpv) Date of Mammogram: 05/01/24 (Birad 1) Review of Systems Const All systems reviewed & are unremarkable except as noted in HPI and below Reports as per HPI Eyes Reports no additional complaints ENT Reports no additional complaints Card Reports no additional complaints Resp Reports no additional complaints GI Reports as per HPI and Reports no additional complaints Reports as per HPI Musc Reports no additional complaints Skin/Breast Reports as per HPI Neuro Reports no additional complaints Psych Reports no additional complaints Endo Reports no additional complaints Abraham/Lymph Reports no additional complaints Aller/Immun Reports no additional complaints Physical Exam Vital Signs: Last Vital Signs BP 126/88 12/25/24 07:45 BMI result Body Mass Index 28.9 Const General: cooperative, healthy appearing, no acute distress, well developed and alert Orientation/consciousness: patient oriented x3 HEENT Head: Yes normal to inspection Eyes General: appearance normal, both eyes and all related structures Neck Neck: Yes normal visual inspection Thyroid: Thyroid normal Chest Chest palpation & inspection: normal inspection of the chest and other (no puckering, dimpling, peau de orange, retraction, discharge, masses) Breast/axilla inspection: normal inspection of the breasts Breast/axilla palpation: normal palpation of the breasts Resp Effort & Inspection: normal respiratory effort GI Inspection: Yes normal to inspection Palpation (GI): Soft to palpation Rectal Exam - Female: deferred General: Yes bladder normal to palpation External Female Exam: normal external appearance and normal appearance of the urethra Speculum Exam - Vagina: normal palpation and vagina atrophic Speculum Exam - Cervix: normal appearance of the cervix and normal palpation Bimanual exam- vagina & uterus: normal bimanual exam, normal palpation, uterine size normal, bladder normal to palpation, normal palpation and non-tender Bimanual Exam- Adnexa, other: no masses Skin General skin exam: no rashes or lesions noted Rashes: no rashes Neuro General: patient oriented x3 Cognition (Neuro): normal cognition Extrem General: Yes normal to inspection Psych Attitude: cooperative Thought process: Normal thought process present Assessment & Plan Assessment & Plan (1) Encounter for annual routine gynecological examination: Code(s): Z01.419 - Encounter for gynecological examination (general) (routine) without abnormal findings Category: Medical Plan Discussed: Current recommendations for pap smears per ASCCP guidelines. Breast awareness, periodic self breast exams and yearly mammogram. Maintain a healthy lifestyle, well balanced diet including Calcium 1,200 mg and Vitamin D 600 IU daily, and routine exercise. Contact the office with any postmenopausal bleeding. Patient verbalizes understanding and agrees to the plan of care. She was given opportunity to ask questions and all questions were answered to the best of my ability. RTO in 1 year for annual obstetrician gynecologist exam. This note is constructed using voice recognition software. While every effort has been made to ensure accuracy, elementary summer school teacher errors may have been included. Coding Level of Care Code Est Pt Prev Care >65y(06621) Diagnoses Encounter for annual routine gynecological examination Z01.419
[2024-12-25 07:45] VITALS: BP 126/88; BMI 28.9
== END 2024-12-25 08:39 | disposition home or self-care (01) ==
LOC: HO.HWS 07:39
PROVIDERS: PCP Student in an Organized Health Care Education/Training Program; Visit Provider Advanced Practice Midwife
DX: Z01.419 Encounter for gynecological examination (general) (routine) without abnormal findings (principal)
CPT/HCPCS: 99397; 99459